=== PATIENT | female | born 1985 | race Caucasian/White ===

== ENCOUNTER → 2019-12-16 15:22 | Outpatient (CLI) | payer OTHER, SELFPAY ==
--- NOTE | ~2019-12-16 | US_ITS ---
EXAMINATION: US OB transvaginal EXAM DATE: 12/16/2019 15:49 INDICATION: , for dating. First trimester. TECHNIQUE: Pelvic obstetrical transvaginal sonogram was performed by a technologist. There are [facility] grayscale and Doppler images available for interpretation. There are no earlier studies of this gestation for comparison. FINDINGS: Uterus measures 9.1 x 4.1 x 4.7 cm. There is intrauterine gestation sac. The 1.0 cm crown -rump length corresponds to estimated gestational age by ultrasound of 5 weeks 0 days, estimated date of confinement 08/17/2020. pole identified at this time. Yolk sac is identified. There is no sonographic evidence of subchorionic hemorrhage. The ovaries are unremarkable. IMPRESSION: Intrauterine gestation sac without pole confirmed at this early gestation age of 5 weeks 0 days. Reviewed, dictated and finalized at location A. [employer] SUPERVISOR IMPRESSION: Intrauterine gestation sac without pole confirmed at this ear ly gestation age of 5 weeks 0 days.
== END ==
PROVIDERS: PCP Family Medicine; Visit Provider Nurse Practitioner
DX: Z36.87 Encounter for antenatal screening for uncertain dates (principal); Z3A.01 Less than 8 weeks gestation of pregnancy
CPT/HCPCS: 76817

== ENCOUNTER 2019-12-29 10:03 | Outpatient (RCR) | payer OTHER, SELFPAY | END 2020-03-28 23:59 | disposition home or self-care (01) | LOC: ANHLAB 10:03 | PROVIDERS: PCP Family Medicine; Visit Provider Obstetrics & Gynecology Gynecology | DX: Z32.01 Encounter for pregnancy test, result positive (principal); O26.851 Spotting complicating pregnancy, first trimester; Z3A.00 Weeks of gestation of pregnancy not specified | CPT/HCPCS: 36415; 84702; 86900; 86901 ==

== ENCOUNTER → 2020-01-02 08:46 | Outpatient (CLI) | payer OTHER, SELFPAY ==
--- NOTE | ~2020-01-02 | US_ITS ---
EXAMINATION: US OB transvaginal DATE: 01/02/2020 09:18 INDICATION: Vaginal spotting TECHNIQUE: Real-time transvaginal obstetric ultrasound. FINDINGS: Comparison to 12/16/2019 The uterus measures 8 x 4 x 6 cm.. There is an intrauterine gestational sac, with pole identifi ed. The crown rump length measures 0.36 cm, which correlates with a estimated gestational age of 6 w eeks 0 days. heart tones are identified measuring 77 BPM. The ovaries are within normal limit s without significant solid or cystic mass. No free fluid in the pelvis. IMPRESSION: 1. SL IUP with an EGA of 6 weeks, 0 days (EDC by current ultrasound of 08/27/2020). growth is l ess than expected compared to prior examination. Recommend follow-up ultrasound as clinically indicat ed. Reviewed, dictated and finalized at location A. IMPRESSION: 1. SL IUP with an EGA of 6 weeks, 0 days (EDC by current ultrasound of 08/27/20 20). growth is less than expected compared to prior examination. Recommen d follow-up ultrasound as clinically indicated.
== END ==
PROVIDERS: PCP Family Medicine; Visit Provider Obstetrics & Gynecology Gynecology
DX: O26.851 Spotting complicating pregnancy, first trimester (principal); Z3A.01 Less than 8 weeks gestation of pregnancy
CPT/HCPCS: 76817

== ENCOUNTER 2020-01-04 15:45 | Outpatient (RCR) | payer OTHER, SELFPAY | END 2020-01-04 15:46 | disposition home or self-care (01) | LOC: ANHLAB 15:45 | PROVIDERS: PCP Family Medicine; Visit Provider Obstetrics & Gynecology Gynecology | DX: O20.0 Threatened abortion (principal); Z3A.00 Weeks of gestation of pregnancy not specified | CPT/HCPCS: 36415; 84702 ==

== ENCOUNTER → 2020-01-06 14:19 | Outpatient (CLI) | payer OTHER, SELFPAY ==
--- NOTE | ~2020-01-06 | US_ITS ---
EXAMINATION: US OB transvaginal DATE: 01/06/2020 15:09 INDICATION: Threatened . TECHNIQUE: Real-time transvaginal pelvic ultrasound was performed. COMPARISON: Ultrasound 01/02/2020, 12/16/2019 FINDINGS: The uterus measures 7.6 x 4.9 x 6.0 cm. There is an intrauterine gestational sac. A yolk sac is ident ified. The crown rump length measures 3 mm, which correlates with an estimated gestational age of 6 weeks and 0 day(s) (+/-) 4 day(s). heart motion is identified, but the heart rate could n ot be measured. The right ovary measures 1.9 x 2.8 x 1.8 cm. The left ovary measures 2.7 x 2.8 x 2.6 cm. There is no free fluid in the pelvis. IMPRESSION: 1. Single living intrauterine gestation with estimated date of delivery of 08/27/2020 based on the u ltrasound from 01/02/2020. Reviewed, dictated and finalized at location A. IMPRESSION: 1. Single living intrauterine gestation with estimated date of delivery of based on the ultrasound from 01/02/2020.
== END ==
PROVIDERS: PCP Family Medicine; Visit Provider Nurse Practitioner
DX: O20.0 Threatened abortion (principal); Z3A.00 Weeks of gestation of pregnancy not specified
CPT/HCPCS: 76817

== ENCOUNTER → 2020-01-13 10:26 | Outpatient (CLI) | payer OTHER, SELFPAY ==
--- NOTE | ~2020-01-13 | US_ITS ---
EXAMINATION: US OB transvaginal DATE: 01/13/2020 10:52 INDICATION: Threatened during first trimester of . TECHNIQUE: Real-time pelvic ultrasound was performed. The interpreting radiologist was not present fo r the study. COMPARISON: None. FINDINGS: The uterus measures 10.4 x 5.5 x 5.9. There is an intrauterine gestational sac. A yolk sac and pole are identified. The crown rump length measures 4 mm, which correlates with an estimated gestatio nal age of 6 weeks and 0 days. No evident cardiac motion by M-mode Doppler. The right ovary 3.3 x 2.0 x 2.9. The left ovary 3.1 x 3.0 x 2.7. There is no free fluid in the pelvis . IMPRESSION: 1. Intrauterine with 6 mm pole without discernible heart motion on Doppler jc ging which is suspicious for but at <7 mm crown-rump length, not diagnostic for demise. Reviewed, dictated and finalized at location B. IMPRESSION: 1. Intrauterine with 6 mm pole without discernible heart motion on Doppler imaging which is suspicious for but at <7 mm crown-rump lianna th, not diagnostic for demise.
== END ==
PROVIDERS: PCP Family Medicine; Visit Provider Obstetrics & Gynecology Gynecology
DX: O20.0 Threatened abortion (principal); Z3A.00 Weeks of gestation of pregnancy not specified
CPT/HCPCS: 76817

== ENCOUNTER 2021-11-01 15:30 | Outpatient (RCR) | payer OTHER, SELFPAY ==
[2021-10-31 13:02] VITALS: BMI 30.4
[2021-10-31 13:11] VITALS: BMI 30.4
[2021-11-12] VITALS (9 sets, daily range): BP systolic 122–133; BP diastolic 68–73; PULSE 57–75; O2SAT 99–100
== END 2022-01-20 12:08 | disposition home or self-care (01) ==
LOC: ANHDMC 15:30
PROVIDERS: Visit Provider Obstetrics & Gynecology
DX: O24.319 Unspecified pre-existing diabetes mellitus in pregnancy, unspecified trimester (principal); Z3A.00 Weeks of gestation of pregnancy not specified; Z71.3 Dietary counseling and surveillance; Z71.89 Other specified counseling
CPT/HCPCS: 97802; G0108

== ENCOUNTER 2021-12-04 13:32 | Outpatient (RCR) | payer OTHER, SELFPAY ==
[2021-11-05 16:02] VITALS: BP 128/67; PULSE 63
[2021-11-12 16:17] VITALS: BP 122/73; PULSE 66
[2021-11-18 15:42] VITALS: BP 124/70; PULSE 72
[2021-11-27 14:05] VITALS: BP 123/82; PULSE 81
[2021-12-04 14:25] VITALS: BP 140/76; PULSE 65
== END 2022-02-03 23:59 | disposition home or self-care (01) ==
LOC: ANHOBOP 13:32
PROVIDERS: Visit Provider Obstetrics & Gynecology
DX: O24.419 Gestational diabetes mellitus in pregnancy, unspecified control (principal); Z3A.32 32 weeks gestation of pregnancy; Z3A.33 33 weeks gestation of pregnancy; Z3A.34 34 weeks gestation of pregnancy; Z3A.36 36 weeks gestation of pregnancy; Z3A.37 37 weeks gestation of pregnancy
CPT/HCPCS: 59025

== ENCOUNTER 2021-12-06 16:15 | Observation (INO) | payer OTHER, SELFPAY ==
[2021-12-06 16:39] VITALS: BP 143/94; PULSE 88
[2021-12-06 16:45] VITALS: BP 132/82; PULSE 74
[2021-12-06 17:36] VITALS: BMI 30.4
--- NOTE | 2021-12-06 17:37 | OBADM ---
This patient, Mariana Muniz, admitted to the OB room OB Post 117 for observation. Patient/family oriented to hospital policies and general routines including ID bracelet, bed and alarms, visiting hours, pain management, procedures, bathroom and other care routines, personal items, smoking policy, room service/diet, and visiting hours. Patient/Family are encouraged to report perceived risks to care and to ask questions if they do not understand what they are told or what they should do.
--- NOTE | 2021-12-12 07:36 | PM.OBTRLD ---
OB - Triage/Final Diagnosis Visit Information Comments/Additional reasons for admission: I have assessed the risk for this patient, Mariana Muniz, and determined that she would benefit from observation care.
== END 2021-12-06 17:35 | disposition home or self-care (01) ==
PROVIDERS: Admitting Provider Obstetrics & Gynecology; Visit Provider Obstetrics & Gynecology
DX: O47.1 False labor at or after 37 completed weeks of gestation (principal); Z3A.37 37 weeks gestation of pregnancy
CPT/HCPCS: G0378; G0379

== ENCOUNTER 2021-12-10 06:53 | Inpatient (IN) | payer OTHER, SELFPAY ==
[2021-12-10] VITALS (24 sets, daily range): BP systolic 123–166; BP diastolic 65–96; PULSE 65–114; RESP 16; TEMP 36.4–37.1; O2SAT 97–100; BMI 29.9
[2021-12-10 07:53] LABS: Basophils Absolute Auto 0.1 K/mm3 (0.0-0.1); Basophils Percent Auto 0.4 % (0.2-1.2); Eosinophils Absolute Auto 0.1 K/mm3 (0-0.3); Eosinophils Percent Auto 0.9 % (0-4.4); Hematocrit 38.1 % (37.0-47.0); Hemoglobin 13.8 g/dL (12.0-15.0); Immature Granulocyte Absolute 0.12 K/mm3 (0.00-0.031); Immature Granulocyte Percent A 0.9 % (0-0.5); Immature Platelet Fraction Pct 14.6 % (0.9-11.2); Lymphocytes Percent Auto 8.7 % (18.3-44.2); Mean Corpuscular HGB Conc 36.2 g/dl (32-36); Mean Corpuscular Hemoglobin 32.5 pg (26-34); Mean Corpuscular Volume 89.6 fl (80-100); Mean Platelet Volume 11.8 fl (7.4-10.4); Monocytes Absolute Auto 0.7 K/mm3 (0.1-0.6); Monocytes Percent Auto 5.5 % (2.6-8.5); Neutrophils Absolute Auto 10.6 K/mm3 (1.3-6.7); Neutrophils Percent Auto 83.6 % (45.5-73.1); Platelet Count Result 39 k/mm3 (150-375); Red Blood Count 4.25 M/mm3 (4.2-5.4); White Blood Count 12.7 K/mm3 (4.5-10.0)
[2021-12-10] MEDS: OXYTOCIN 30 UNITS/NS 500 ML 30 UNITS/500 ML BAG 6 UNITS IV CONT (08:03)
[2021-12-10] MEDS: LACTATED RINGERS 1,000 ML 125 ML IV CONT ×2 (08:03→09:10)
[2021-12-10 08:04] LABS: Alanine Aminotransferase 335 U/L (4-35); Albumin Level 3.9 g/dL (3.5-5.1); Alkaline Phosphatase 180 U/L (38-126); Anion Gap 8 mmol/L (8-16); Aspartate Amino Transferase 307 U/L (14-36); Bilirubin,Total 2.2 mg/dL (0.2-1.3); Blood Urea Nitrogen 14 mg/dL (7-17); Calcium 9.4 mg/dL (8.4-10.2); Carbon Dioxide 21 mmol/L (22-30); Chloride 105 mmol/L (98-107); Estimated Glomerular Filt Rate > 60; Glucose 100 mg/dL (65-110); Potassium 4.1 mmol/L (3.4-5.0); Sodium 134 mmol/L (137-145)
[2021-12-10 08:13] LABS: Uric Acid 8.6 mg/dL (2.5-7.5)
[2021-12-10 08:16] LABS: Atypical Lymphocytes Present; Platelet Estimate Decreased (Adequate)
--- NOTE | 2021-12-10 08:51 | PM.IMHP ---
H&P: HPI History of Present Illness Date/Time: 12/10/21 08:51 36 y/o at 37 4/7 weeks with favorable cervix, mildly elevated bp in office yesterday at 142/92. No proteinuria, no headache, no visual field change, good movement. EFW 7#2oz, normal MATHEW, vertex. GBS neg. Well-controlled A1DM. I had offered induction of labor in light of clinical picture. Her labs this morning were a surprise. Chief Complaint: Hear for induction of labor. Review of Systems Review of Systems: All systems reviewed & are unremarkable except as noted in HPI and below PMFSH Past Medical History Medical History Asthma Depression Family History Family History Grandparent IBS (irritable bowel syndrome) Acid reflux FH: mental illness Asthma Heart disease Diabetes mellitus Cancer Mother IBS (irritable bowel syndrome) Acid reflux Alcohol addiction FH: mental illness Cancer Father Alcohol addiction Pancreatitis Heart disease Diabetes mellitus Other Patient's father is Social History Social History Smoking status: Never smoker Substance use: never Spiritual care concerns: No Meds Home Medications and Allergies Home Medications Medication Instructions Recorded Confirmed Type 1 tablet PO DAILY 12/06/21 12/06/21 History diphenhydramine HCl 25 mg PO HS PRN 12/06/21 12/06/21 History Allergies Allergy/AdvReac Type Severity Reaction Status Date / Time NKDA Allergy Unknown Unknown Uncoded 11/27/21 13:52 Vital Signs Vital Signs - 24 hr 12/10/21 07:11 12/10/21 08:07 12/10/21 08:31 Pulse Rate 81 70 74 Blood Pressure 148/96 H 146/87 H 144/81 H Exam Const: Orientation/consciousness: patient oriented x3 Other: Well-developed, well-nourished female in no acute distress. Neck: Thyroid: thyroid normal Lymphatic: no lymphadenopathy noted (in neck, axilla or inguinal nodes) Resp: Effort & Inspection: normal respiratory effort Auscultation: clear to auscultation bilaterally Cardio: Rate: regular rate Rhythm: regular rhythm Heart sounds: S1 normal heart sound present and S2 normal heart sound present GI: Other: ABD: Soft, nontender, nondistended, gravid, vertex. NST reactive. TOCO: contractions every 2-4 min. No guarding or rebound tenderness. No hepatosplenomegaly. : General: Yes no CVA tenderness Other: Cervix 4-5/80/-2. AROM with clear fluid. Vertex. Back/Spine/Pelvis: Back: no CVA tenderness Skin: General skin exam: normal color and no rashes or lesions noted Neuro: General: patient oriented x3 Extrem: Other: Extremities: nontender with no edema Psych: Mental Status: mental status grossly normal Affect: normal affect H&P: Results Labs Labs: Short CBC 12/10/21 Range/Units 07:40 WBC 12.7 H (4.5-10.0) K/mm3 Hgb 13.8 (12.0-15.0) g/dL Hct 38.1 (37.0-47.0) % Plt Count 39 L (150-375) k/mm3 BMP 12/10/21 07:40 Sodium 134 L Potassium 4.1 Chloride 105 Carbon Dioxide 21 L BUN 14 Creatinine 1.00 Glucose 100 Calcium 9.4 Liver Function 12/10/21 Range/Units 07:40 Total Bilirubin 2.2 H (0.2-1.3) mg/dL AST 307 H (14-36) U/L ALT 335 H (4-35) U/L Alkaline Phosphatase 180 H (38-126) U/L Albumin 3.9 (3.5-5.1) g/dL Assessment and Plan Assessment and plan (1) GDM (gestational diabetes mellitus), class A1: Code(s): O24.410 - Gestational diabetes mellitus in , diet controlled Status: Acute Assessment and Plan: A: Preeclampsia with severe features, well-controlled A1DM. P: Induction of labor. Consider magnesium sulfate for seizure prophylaxis. Peds and anesthesia aware. Monitor glucose, bp. (2) Preeclampsia: Code(s): O14.90 - Unspecified pre-eclampsia, unspecified trimester Status:
[2021-12-10 09:00] LABS: Immature Platelet Fraction Pct 14.6 % (0.9-11.2); Mean Platelet Volume 11.7 fl (7.4-10.4); Platelet Count Result 36 k/mm3 (150-375)
[2021-12-10] MEDS: fentaNYL CITRATE INJ (*CRX) 100 MCG/2 ML VIAL 50 MCG IV PUSH ×2 (09:27→10:36)
[2021-12-10] MEDS: ONDANSETRON INJ 4 MG/2 ML VIAL IV PUSH (11:17)
[2021-12-10] MEDS: fentaNYL CITRATE INJ (*CRX) 100 MCG/2 ML VIAL IV PUSH (11:18)
[2021-12-10 12:19] LABS: Glucose Point of Care 90 mg/dl (65-105)
--- NOTE | 2021-12-10 12:32 | PM.OBPRVD ---
OB - Delivery Note Procedure Delivery date: 12/10/21 Procedure: Induction of labor with Events: HELLP Syndrome Induction method: None Delivery augmentation: Pitocin Delivery monitor: External FHT and External Uterine Route of delivery: Laceration Description: Perineal - 2nd Degree Delivery repair: vicryl (3-0) Specimen: Yes (cord blood, placenta) Quantitative Blood Loss (ml): 320 Anesthesia type: Local (1% lidocaine) Disposition: PACU Complications: None Narrative: 36 y/o at 37 4/7 weeks gestation who presented to the hospital for induction of labor for elevated bp, well-controlled A1DM, and favorable cervix. On admission she was found to have elevated transaminases, elevated creatinine, and platelets of only 39K. Oxytocin was administered intravenously. Amniotomy was performed with return of clear fluid. Her labor progressed and her cervix dilated completely. She pushed with good effort and delivered the 's head to the perineum, followed by the body. The nose and mouth were bulb suctioned. After a delay, the cord was clamped and cut. The infant was handed off the field. Cord blood was collected. The placenta delivered spontaneously and was grossly normal in appearance. The usual 3 vessel cord was noted. A second degree midline perineal laceration was sustained. This was infiltrated with 10 mL of 1% lidocaine and reapproximated using 3 0 Vicryl in the usual layered fashion. Excellent hemostasis resulted as did excellent reapproximation of the normal anatomy. Needle and instrument counts were correct. The patient was taken to recovery room in stable condition. The infant went to the nursery in stable condition. I was present and scrubbed for the entire delivery. [place] [facility] Date of : 12/10/21 Time of : 12:01 Weeks of gestation at delivery: 37 gender: Female Weight (pounds): 7 Weight (ounces): 1 presentation: vertex position: Right Occiput Anterior Placenta delivery description: Spontaneous and Normal Configuration Cord Vessel Description: 3 Vessels and Delayed Cord Clamping score one minute: 8 score five minutes: 9
[2021-12-10] MEDS: OXYTOCIN 30 UNITS/NS 500 ML 30 UNITS/500 ML BAG 125 UNITS IV CONT (12:39)
[2021-12-10] MEDS: MAGNESIUM SULF 4 GM/WATER100ML 4 GM/100 ML BAG IVPB (13:00)
[2021-12-10] MEDS: MAGNESIUM SULF 20GM/WATER500ML 500 ML 50 MG IV CONT ×2 (14:01→23:18)
[2021-12-10] MEDS: IBUPROFEN 600 MG TABLET PO ×2 (14:03→21:04)
[2021-12-10] MEDS: WITCH HAZEL 40 PADS 1 PAD TOPICAL (14:04)
[2021-12-10] MEDS: BENZOCAINE 20% AER SPR (*SP) 56 GM CAN 1 SPRAY TOPICAL (14:04)
--- NOTE | 2021-12-10 14:56 | OBPPTRN ---
Patient transferred to post room # 291 via wheelchair. Support person present. Oriented to unit, room, information board, rooming in, admission packet and security measures. Patient verbalizes understanding.
[2021-12-10] MEDS: LACTATED RINGERS 1,000 ML 75 ML IV CONT (17:17)
[2021-12-10 19:21] LABS: Hematocrit 35.2 % (37.0-47.0); Hemoglobin 12.6 g/dL (12.0-15.0); Immature Platelet Fraction Pct 15.7 % (0.9-11.2); Mean Corpuscular HGB Conc 35.8 g/dl (32-36); Mean Corpuscular Hemoglobin 32.8 pg (26-34); Mean Corpuscular Volume 91.7 fl (80-100); Mean Platelet Volume 11.8 fl (7.4-10.4); Platelet Count Result 38 k/mm3 (150-375); Red Blood Count 3.84 M/mm3 (4.2-5.4); Red Cell Distribution Width 13.3 % (11.5-14.5); White Blood Count 13.1 K/mm3 (4.5-10.0)
[2021-12-10] MEDS: ACETAMINOPHEN 325 MG TABLET 650 MG PO (21:05)
[2021-12-10] MEDS: diphenhydrAMINE HCl CAP 25 MG CAPSULE 50 MG PO (21:06)
[2021-12-10] MEDS: HYDROcodone/acetaminophen (*CRX) 5-325 MG TABLET 1 TAB PO (23:17)
[2021-12-11] MEDS: HYDROcodone/acetaminophen (*CRX) 5-325 MG TABLET 1 TAB PO ×3 (03:58→21:14)
[2021-12-11 04:00] VITALS: BP 132/87; PULSE 86; RESP 18; TEMP 36.7; O2SAT 100
[2021-12-11] MEDS: LACTATED RINGERS 1,000 ML 75 ML IV CONT (04:10)
[2021-12-11 05:07] LABS: Hemoglobin 11.7 g/dL (12.0-15.0); Immature Platelet Fraction Pct 17.3 % (0.9-11.2); Mean Corpuscular HGB Conc 35.5 g/dl (32-36); Mean Corpuscular Hemoglobin 32.8 pg (26-34); Mean Corpuscular Volume 92.4 fl (80-100); Mean Platelet Volume 12.2 fl (7.4-10.4); Platelet Count Result 32 k/mm3 (150-375); Red Blood Count 3.57 M/mm3 (4.2-5.4); Red Cell Distribution Width 13.4 % (11.5-14.5); White Blood Count 12.4 K/mm3 (4.5-10.0)
[2021-12-11 05:22] LABS: Alanine Aminotransferase 361 U/L (4-35); Albumin Level 2.9 g/dL (3.5-5.1); Alkaline Phosphatase 166 U/L (38-126); Anion Gap 4 mmol/L (8-16); Aspartate Amino Transferase 358 U/L (14-36); Bilirubin,Total 1.1 mg/dL (0.2-1.3); Blood Urea Nitrogen 8 mg/dL (7-17); Calcium 5.7 mg/dL (8.4-10.2); Carbon Dioxide 23 mmol/L (22-30); Chloride 106 mmol/L (98-107); Estimated CRCL calculation 88 ml/min; Estimated Glomerular Filt Rate > 60; Glucose 144 mg/dL (65-110); Potassium 3.6 mmol/L (3.4-5.0); Sodium 133 mmol/L (137-145)
[2021-12-11 07:25] VITALS: BP 107/66; PULSE 76; RESP 16; TEMP 36.4; O2SAT 98
--- NOTE | 2021-12-11 07:42 | PM.OBTRLD ---
OB - Triage/Final Diagnosis Visit Information Reason for evaluation: threatened labor Comments/Additional reasons for admission: I have assessed the risk for this patient, Mariana Muniz, and determined that she would benefit from observation care. Evaluation Laboratory results: Laboratory Tests 12/10/21 12/10/21 12/10/21 07:39 07:40 07:40 WBC 12.7 H RBC 4.25 Hgb 13.8 Hct 38.1 MCV 89.6 MCH 32.5 MCHC 36.2 H RDW 13.0 Plt Count 39 L MPV 11.8 H Immature Gran % (Auto) 0.9 H Neut % (Auto) 83.6 H Lymph % (Auto) 8.7 L [place] % (Auto) 5.5 Eos % (Auto) 0.9 Baso % (Auto) 0.4 Lymph # (Auto) 1.10 [place] # (Auto) 0.7 H Eos # (Auto) 0.1 Baso # (Auto) 0.1 Abs Immat Gran (auto) 0.12 H Absolute Neuts (auto) 10.6 H Absolute Nucleated RBC 0.0 Nucleated RBC % 0.0 Atypical Lymphocytes Present Platelet Estimate Decreased % Immature Plt Fraction 14.6 H Sodium Potassium Chloride Carbon Dioxide Anion Gap BUN Creatinine Estim Creat Clear Calc Estimated GFR Glucose POC Capillary Glucose Uric Acid Cancelled Calcium Total Bilirubin AST ALT Alkaline Phosphatase Total Protein Albumin Blood Type AB Positive Antibody Screen Negative 12/10/21 12/10/21 12/10/21 07:40 08:29 11:03 WBC RBC Hgb Hct MCV MCH MCHC RDW Plt Count 36 L MPV 11.7 H Immature Gran % (Auto) Neut % (Auto) Lymph % (Auto) [place] % (Auto) Eos % (Auto) Baso % (Auto) Lymph # (Auto) [place] # (Auto) Eos # (Auto) Baso # (Auto) Abs Immat Gran (auto) Absolute Neuts (auto) Absolute Nucleated RBC Nucleated RBC % Atypical Lymphocytes Platelet Estimate % Immature Plt Fraction 14.6 H Sodium 134 L Potassium 4.1 Chloride 105 Carbon Dioxide 21 L Anion Gap 8 BUN 14 Creatinine 1.00 Estim Creat Clear Calc Not Reportable Estimated GFR > 60 Glucose 100 POC Capillary Glucose 90 Uric Acid 8.6 H Calcium 9.4 Total Bilirubin 2.2 H AST 307 H ALT 335 H Alkaline Phosphatase 180 H Total Protein 7.0 Albumin 3.9 Blood Type Antibody Screen 12/10/21 12/11/21 12/11/21 19:08 04:07 04:07 WBC 13.1 H 12.4 H RBC 3.84 L 3.57 L Hgb 12.6 11.7 L Hct 35.2 L 33.0 L MCV 91.7 92.4 MCH 32.8 32.8 MCHC 35.8 35.5 RDW 13.3 13.4 Plt Count 38 L 32 L MPV 11.8 H 12.2 H Immature Gran % (Auto) Neut % (Auto) Lymph % (Auto) [place] % (Auto) Eos % (Auto) Baso % (Auto) Lymph # (Auto) [place] # (Auto) Eos # (Auto) Baso # (Auto) Abs Immat Gran (auto) Absolute Neuts (auto) Absolute Nucleated RBC Nucleated RBC % Atypical Lymphocytes Platelet Estimate % Immature Plt Fraction 15.7 H 17.3 H Sodium 133 L Potassium 3.6 Chloride 106 Carbon Dioxide 23 Anion Gap 4 L BUN 8 D Creatinine 0.80 Estim Creat Clear Calc 88 Estimated GFR > 60 Glucose 144 H POC Capillary Glucose Uric Acid Calcium 5.7 L Total Bilirubin 1.1 AST 358 H ALT 361 H Alkaline Phosphatase 166 H Total Protein 6.0 L Albumin 2.9 L Blood Type Antibody Screen Vital signs: Vital Signs - 24 hr 12/10/21 08:07 12/10/21 08:31 12/10/21 09:01 Temperature Pulse Rate 70 74 65 Respiratory Rate Blood Pressure 146/87 H 144/81 H 151/81 H Pulse Oximetry 12/10/21 09:29 12/10/21 10:01 12/10/21 10:31 Temperature 98.8 F Pulse Rate 67 67 Respiratory Rate Blood Pressure 156/88 H 161/86 H Pulse Oximetry 12/10/21 11:01 12/10/21 12:22 12/10/21 12:31 Temperature Pulse Rate 74 80 80 Respiratory Rate Blood Pressure 158/77 H 152/73 H 150/70 H Pulse Oximetry 12/10/21 12:46 12/10/21 13:00 12/10/21 13:01 Temperature 98.8 F Pulse Rate 81 82 Respiratory Rate 16 Blood Pressur
--- NOTE | 2021-12-11 08:00 | PC.NURSE ---
PT introductions made and plan of care discussed per post , pain management, breast /bottle feeding/pumping, daily care activities and PIH. PT and spouse both recipients of such instructions and care. PT received instructions per one to one discussion, mom baby care guide and demonstrations this shift. No barriers identified at this time. PT verbalized understanding.
[2021-12-11 08:30] VITALS: PULSE 76; RESP 16; O2SAT 98
--- NOTE | 2021-12-11 08:30 | PM.OBPNVD ---
OB - PN: Subj Subjective Date/time seen: 12/11/21 08:30 Narrative: Pain OK. Tolerating diet. OB - PN: Obj Data Labs CBC & Chem 7: 12/11/21 04:07 12/11/21 04:07 Labs: Laboratory Results - last 24 hr 12/10/21 12/10/21 12/10/21 07:39 08:29 11:03 WBC RBC Hgb Hct MCV MCH MCHC RDW Plt Count 36 L MPV 11.7 H % Immature Plt Fraction 14.6 H Sodium Potassium Chloride Carbon Dioxide Anion Gap BUN Creatinine Estim Creat Clear Calc Estimated GFR Glucose POC Capillary Glucose 90 Calcium Total Bilirubin AST ALT Alkaline Phosphatase Total Protein Albumin Blood Type AB Positive Antibody Screen Negative 12/10/21 12/11/21 12/11/21 19:08 04:07 04:07 WBC 13.1 H 12.4 H RBC 3.84 L 3.57 L Hgb 12.6 11.7 L Hct 35.2 L 33.0 L MCV 91.7 92.4 MCH 32.8 32.8 MCHC 35.8 35.5 RDW 13.3 13.4 Plt Count 38 L 32 L MPV 11.8 H 12.2 H % Immature Plt Fraction 15.7 H 17.3 H Sodium 133 L Potassium 3.6 Chloride 106 Carbon Dioxide 23 Anion Gap 4 L BUN 8 D Creatinine 0.80 Estim Creat Clear Calc 88 Estimated GFR > 60 Glucose 144 H POC Capillary Glucose Calcium 5.7 L Total Bilirubin 1.1 AST 358 H ALT 361 H Alkaline Phosphatase 166 H Total Protein 6.0 L Albumin 2.9 L Blood Type Antibody Screen OB - PN A/P Plan Comments: A: POD#1, doing well. Severe preeclampsia showing some improvement. Cr and UO good, bp stable, transaminases and platelets not improved yet. P: Routine care. Magnesium sulfate for 24 hours for seizure prophylaxis. Repeat labs tomorrow. Exam Narrative: AVSS I/O OK ABD soft, nontender, fundus firm. Incision c/d/i. EXT nontender NEURO: DTR 2/4 and symmetric in lower extremities
[2021-12-11 09:25] LABS: Rapid Plasma Reagin Non-Reactive (NonReactive)
[2021-12-11] MEDS: MAGNESIUM SULF 20GM/WATER500ML 500 ML 50 MG IV CONT (09:43)
[2021-12-11] MEDS: ACETAMINOPHEN 325 MG TABLET 650 MG PO (09:49)
[2021-12-11] MEDS: POLYSACCHARIDE IRON COMPLEX 150 MG CAPSULE PO (09:50)
[2021-12-11] MEDS: DOCUSATE SODIUM 100 MG CAPSULE PO ×2 (09:50→17:09)
[2021-12-11] MEDS: MULTIVIT/MIN/PREN/FOL AC/IRON TABLET 1 TAB PO (09:50)
[2021-12-11 11:47] VITALS: BP 122/81; PULSE 87; RESP 16; TEMP 36.6; O2SAT 99
--- NOTE | 2021-12-11 14:30 | P.DS_ITS ---
DS: Admitting Diagnosis Discharge Date 12/12/21 Admitting Diagnosis IUP at 37 4/7 weeks Severe preeclampsia Gestational diabetes DS: Discharge Diagnosis Discharge Diagnosis (1) Preeclampsia: Code(s): O14.90 - Unspecified pre-eclampsia, unspecified trimester Status: Acute (2) GDM (gestational diabetes mellitus), class A1: Code(s): O24.410 - Gestational diabetes mellitus in , diet controlled Status: Acute (3) (normal spontaneous vaginal delivery): Code(s): O80 - Encounter for full-term uncomplicated delivery Status: Acute OB - DS: Summary OB Procedures : PIH Mgmt OB Procedures Intrapartum: Spontaneous Vag Delivery OB Procedures: : None DS: Data Data Completed and Pending Pending studies at discharge: Pending at discharge 12/10/21 12:27 Surgical [PTH] Routine Labs on day of discharge: Labs from last 24 hours 12/11/21 12/11/21 12/10/21 04:07 04:07 19:08 WBC 12.4 H 13.1 H RBC 3.57 L 3.84 L Hgb 11.7 L 12.6 Hct 33.0 L 35.2 L MCV 92.4 91.7 MCH 32.8 32.8 MCHC 35.5 35.8 RDW 13.4 13.3 Plt Count 32 L 38 L MPV 12.2 H 11.8 H % Immature Plt Fraction 17.3 H 15.7 H Sodium 133 L Potassium 3.6 Chloride 106 Carbon Dioxide 23 Anion Gap 4 L BUN 8 D Creatinine 0.80 Estim Creat Clear Calc 88 Estimated GFR > 60 Glucose 144 H Calcium 5.7 L Total Bilirubin 1.1 AST 358 H ALT 361 H Alkaline Phosphatase 166 H Total Protein 6.0 L Albumin 2.9 L RPR 12/10/21 07:40 WBC RBC Hgb Hct MCV MCH MCHC RDW Plt Count MPV % Immature Plt Fraction Sodium Potassium Chloride Carbon Dioxide Anion Gap BUN Creatinine Estim Creat Clear Calc Estimated GFR Glucose Calcium Total Bilirubin AST ALT Alkaline Phosphatase Total Protein Albumin RPR Non-reactive Discharge Plan Discharge Attending physician on discharge: Doroteo Vazquez Discharging Clinician: George Patient Disposition: Home, Self-Care Activity: pelvic rest Diet: regular Discharge Instructions: Call or return if temperature above 100.4? F, increased abdominal pain, increased vaginal bleeding or any new problems. Stand Alone Forms: General Discharge Information Follow-up/Referrals: Doroteo Vazquez MD [Physician] - 1 Week Discharge Medications: New ibuprofen 600 mg tablet 600 mg PO Q6H PRN (Reason: cramps) Qty: 30 RF: 0 hydrocodone-acetaminophen 5-325 mg tablet 1 tablet PO Q6H Qty: 20 RF: 0 Continued 28-800 mg-mcg Tablet 1 tablet PO DAILY RF: 0 diphenhydramine HCl 25 mg Capsule 25 mg PO HS PRN (Reason: Sleep) RF: 0 Date of admission: 12/10/21 06:53 Primary Care Provider: PHYSICIAN,CLIENT APPLICATION SUPPORT SPECIALIST Admitting Provider: Doroteo Vazquez Attending physician on admission: Doroteo Vazquez
[2021-12-11 17:10] VITALS: BP 132/86; PULSE 97; RESP 18; TEMP 36.3; O2SAT 99
[2021-12-11 20:55] VITALS: BP 122/80; PULSE 88; RESP 16; RESP 18; TEMP 36.7; O2SAT 100
[2021-12-11] MEDS: FAMOTIDINE 20 MG TABLET PO (21:30)
[2021-12-12 01:15] VITALS: BP 113/73; PULSE 80; RESP 18; TEMP 36.9; O2SAT 100
[2021-12-12] MEDS: HYDROcodone/acetaminophen (*CRX) 5-325 MG TABLET 1 TAB PO ×2 (01:15→10:07)
[2021-12-12 05:00] VITALS: BP 110/63; PULSE 78; RESP 18; TEMP 36.5; O2SAT 100
[2021-12-12 05:43] LABS: Hematocrit 29.6 % (37.0-47.0); Hemoglobin 10.1 g/dL (12.0-15.0); Immature Platelet Fraction Pct 15.2 % (0.9-11.2); Mean Corpuscular HGB Conc 34.1 g/dl (32-36); Mean Corpuscular Hemoglobin 32.1 pg (26-34); Platelet Count Result 47 k/mm3 (150-375); Red Blood Count 3.15 M/mm3 (4.2-5.4); White Blood Count 12.4 K/mm3 (4.5-10.0)
[2021-12-12 05:53] LABS: Alanine Aminotransferase 229 U/L (4-35); Albumin Level 2.7 g/dL (3.5-5.1); Alkaline Phosphatase 134 U/L (38-126); Anion Gap 2 mmol/L (8-16); Aspartate Amino Transferase 137 U/L (14-36); Bilirubin,Total 0.7 mg/dL (0.2-1.3); Blood Urea Nitrogen 8 mg/dL (7-17); Calcium 5.8 mg/dL (8.4-10.2); Carbon Dioxide 25 mmol/L (22-30); Chloride 107 mmol/L (98-107); Estimated CRCL calculation 99 ml/min; Estimated Glomerular Filt Rate > 60; Glucose 87 mg/dL (65-110); Potassium 3.9 mmol/L (3.4-5.0); Sodium 134 mmol/L (137-145)
--- NOTE | 2021-12-12 06:45 | PC.NURSE ---
PT introductions made and plan of care discussed per post , pain management, breast /bottle feeding/pumping, daily care activities and PIH and pending discharge to home. PT and spouse both recipients of such instructions and care. PT received instructions per one to one discussion, mom baby care guide and demonstrations this shift. No barriers identified at this time. PT verbalized understanding.
[2021-12-12 07:55] VITALS: BP 123/83; PULSE 81; RESP 18; TEMP 36.5; O2SAT 99
--- NOTE | 2021-12-12 09:09 | PM.OBPNVD ---
OB - PN: Subj Subjective Date/time seen: 12/12/21 09:09 Narrative: Pain OK. Would like to go home. OB - PN: Obj Data Labs CBC & Chem 7: 12/12/21 05:34 12/12/21 05:34 Labs: Laboratory Results - last 24 hr 12/10/21 12/12/21 12/12/21 07:40 05:34 05:34 WBC 12.4 H RBC 3.15 L Hgb 10.1 L Hct 29.6 L MCV 94.0 MCH 32.1 MCHC 34.1 RDW 14.0 Plt Count 47 L MPV 12.0 H % Immature Plt Fraction 15.2 H Sodium 134 L Potassium 3.9 Chloride 107 Carbon Dioxide 25 Anion Gap 2 L BUN 8 Creatinine 0.70 Estim Creat Clear Calc 99 Estimated GFR > 60 Glucose 87 Calcium 5.8 L Total Bilirubin 0.7 AST 137 H ALT 229 H Alkaline Phosphatase 134 H Total Protein 5.0 L Albumin 2.7 L RPR Non-reactive OB - PN A/P Plan Comments: A: PPD#2, doing well. Severe preeclampsia improving clinically. P: Home to f/u 1 week. Exam Psych: Other: AVSS ABD soft, nontender, fundus firm EXT nontender
[2021-12-12 10:00] VITALS: PULSE 81; RESP 18; O2SAT 99
[2021-12-12] MEDS: DOCUSATE SODIUM 100 MG CAPSULE PO (10:08)
[2021-12-12] MEDS: MULTIVIT/MIN/PREN/FOL AC/IRON TABLET 1 TAB PO (10:08)
--- NOTE | 2021-12-12 11:30 | PC.NURSE ---
PT received discharge instructions per protocol and verbalized understanding. Patient viewed the discharge video Mother & Baby Care, The First Two Weeks . Patient was given the opportunity and encouraged to ask questions. Patient verbalized understanding of information shared and has been given the mother/baby guide for home reference.
--- NOTE | 2021-12-12 12:35 | PC.NURSE ---
PT discharged to home ambulatory accompanied by spouse and and taken to waiting car. Follow up appointments confirmed
--- NOTE | 2021-12-12 15:29 | PC.NURSE ---
[id number] Introductions were made and mother led the conversation with regards to her experience feeding her baby. Reminded parents to use good handwashing to prevent infection. has had appropriate feedings in the past 24 hours and meets the outcomes for weight, output and jaundice. Mother states she feels confident to continue pumping and supplementing with expressed human milk and formula with her at home. Reviewed production of human milk, transition of milk, signs of adequate intake and engorgement prevention/relief and when to call the care provider using the mom and baby guide. Reviewed medications mother is taking with information provided by [facility], community resources and outpatient services as listed in the mom and baby guide/[facility] website. Reinforced watching for feeding cues with responsive feeding, to stimulate to initiate feeding three hours from the start of the last feeding and when to call a doctor. Mother voiced understanding of information shared. Reported to primary RN.
[2021-12-13 09:51] VITALS: BP 144/81; PULSE 73; RESP 20; TEMP 37.2; O2SAT 100
== END 2021-12-12 12:35 | disposition home or self-care (01) | DRG 805 ==
LOC: ANHLDR 06:56 → ANHOB2 15:18
PROVIDERS: Admitting Provider Obstetrics & Gynecology; Visit Provider Obstetrics & Gynecology
DX: O14.24 HELLP syndrome, complicating childbirth (principal); O41.1230 Chorioamnionitis, third trimester, not applicable or unspecified; Z37.0 Single live birth; Z3A.37 37 weeks gestation of pregnancy; O24.420 Gestational diabetes mellitus in childbirth, diet controlled; O70.1 Second degree perineal laceration during delivery; Z23 Encounter for immunization
CPT/HCPCS: 36415; 80053; 82948; 84550; 85025; 85027; 85049; 85055; 86592; 86850; 86900; 86901; 88307; 90471; 90653; A9270; G0008; J2405; J2590; J2795; J3010; J3475; J7120

== ENCOUNTER 2024-03-15 13:02 | Outpatient (RCR) | payer OTHER, SELFPAY ==
[2024-02-13 09:47] VITALS: BP 129/66; PULSE 81
[2024-02-18 15:38] VITALS: BP 125/67; PULSE 84
[2024-02-25 17:06] VITALS: BP 121/66; PULSE 86
[2024-03-03 10:03] VITALS: PULSE 84
--- NOTE | 2024-03-06 14:58 | PC.NURSE ---
see obix notes
--- NOTE | 2024-03-06 16:36 | PM.OBTRLD ---
OB - Triage/Final Diagnosis Visit Information Date of evaluation: 03/06/24 Reason for evaluation: decreased movement Comments/Additional reasons for admission: I have assessed the risk for this patient, Mariana Muniz, and determined that she would benefit from observation care.
[2024-03-10 18:12] VITALS: BP 130/68; PULSE 87
--- NOTE | ~2024-03-15 | US_ITS ---
EXAMINATION: US OB BPP wo non-stress DATE: 03/06/2024 14:57 CDT INDICATION: Evaluate heart measurements. TECHNIQUE: Real-time transabdominal obstetric ultrasound. FINDINGS: No prior studies for comparison. There is a single living fetus in vertex presentation. The placenta is posterior without placenta pr evia. cardiac activity and movement is noted with a heart rate of 129 beats per minute. T here is polyhydramnios. MATHEW measures 25.2 cm. Biophysical profile: breathin of 2 movement: 2 of 2 tone: 2 of 2 Amniotic flud pocket: 2 of 2 Total score: 8 of 8 IMPRESSION: 1. Single living intrauterine in vertex presentation. 2: Total biophysical profile score of 8/8. 3: Polyhydramnios. Reviewed, dictated and finalized at location A.
== END 2024-03-28 08:19 | disposition home or self-care (01) ==
LOC: ANHOBOP 13:02
PROVIDERS: PCP Internal Medicine; Visit Provider Obstetrics & Gynecology
DX: O24.419 Gestational diabetes mellitus in pregnancy, unspecified control (principal); O36.8130 Decreased fetal movements, third trimester, not applicable or unspecified; O40.3XX0 Polyhydramnios, third trimester, not applicable or unspecified; Z3A.32 32 weeks gestation of pregnancy; Z3A.33 33 weeks gestation of pregnancy; Z3A.35 35 weeks gestation of pregnancy
CPT/HCPCS: 59025; 76819

== ENCOUNTER 2024-03-19 18:09 | Inpatient (IN) | payer OTHER, SELFPAY ==
[2024-03-19] VITALS (93 sets, daily range): BP systolic 114–154; BP diastolic 45–93; PULSE 63–105; TEMP 37; O2SAT 96–100; BMI 35.2
--- NOTE | 2024-03-19 18:36 | LDADM ---
This patient, Mariana Muniz, was admitted to Labor/Delivery/Recovery 106 on 03/19/24 at 18:09. Plans for labor, pain management and were discussed with patient. Patient/family oriented to hospital policies and general routines including ID bracelet, bed and alarms, visiting hours, pain management, procedures, bathroom and other care routines, personal items, smoking policy, room service/diet and guest tray routines, infant security routines, and visiting hours. Patient/Family are encouraged to report perceived risks to care and to ask questions if they do not understand what they are told or what they should do. See [facility] for further documentation.
[2024-03-19] MEDS: LACTATED RINGERS 1,000 ML 125 ML IV CONT ×2 (18:55→20:18)
--- NOTE | 2024-03-19 18:59 | WPDANESEPP ---
Anes - Eval Pre Procedure Procedure: Labor Epidural Date/Time: 03/19/24 18:59 Surgeon: George Preop Diagnosis: Labor Pain Pre Op Diagnosis: Contractions Patient Data Age: 38 Gender: F Height: 1.63 m Weight: 93 kg Last Vital Signs Pulse 82 03/19/24 18:29 BP 154/78 H 03/19/24 18:29 Pulse Ox 99 03/19/24 18:56 O2 Del Method Room Air 03/19/24 18:36 Allergies Allergy/AdvReac Type Severity Reaction Status Date / Time NKDA Allergy Unknown Unknown Uncoded 02/13/24 09:48 Home Medications Medication Instructions Recorded Confirmed Type vit no.133-ferrous 1 tablet PO DAILY 12/06/21 02/13/24 History fumarate 28 mg-folic acid 800 mcg tablet () aspirin 81 mg tablet 81 mg PO DAILY 02/13/24 02/13/24 History docusate sodium 50 mg capsule 100 mg PO DAILY 02/13/24 02/13/24 History sertraline 100 mg tablet 100 mg PO DAILY 02/13/24 02/13/24 History cholecalciferol (vitamin D3) 50 50 mcg PO DAILY 03/03/24 03/03/24 History mcg (2,000 unit) capsule (Vitamin D3) glyburide 5 mg tablet 7.5 mg PO HS 03/03/24 03/03/24 History albuterol sulfate 90 mcg/actuation 2 puff inhalation QID PRN Wheezing 03/10/24 03/10/24 History aerosol inhaler esomeprazole magnesium 40 mg 40 mg PO DAILY 03/10/24 03/10/24 History capsule,delayed release (Nexium) montelukast 10 mg tablet 10 mg PO HS 03/10/24 03/10/24 History (Singulair) Laboratory Tests 03/19/24 18:51 WBC Pending RBC Pending Hgb Pending Hct Pending MCV Pending MCH Pending MCHC Pending RDW Pending Plt Count Pending MPV Pending Immature Gran % (Auto) Pending Neut % (Auto) Pending Lymph % (Auto) Pending [place] % (Auto) Pending Eos % (Auto) Pending Baso % (Auto) Pending Lymph # (Auto) Pending [place] # (Auto) Pending Eos # (Auto) Pending Baso # (Auto) Pending Abs Immat Gran (auto) Pending Absolute Neuts (auto) Pending Absolute Nucleated RBC Pending Nucleated RBC % Pending Sodium Pending Potassium Pending Chloride Pending Carbon Dioxide Pending Anion Gap Pending BUN Pending Creatinine Pending Estim Creat Clear Calc Pending Estimated GFR Pending Glucose Pending Uric Acid Pending Calcium Pending Total Bilirubin Pending AST Pending ALT Pending Alkaline Phosphatase Pending Total Protein Pending Albumin Pending RPR Pending HIV 1&2 Ab/P24 Ag 4thGn Pending : gestational age (, [place] 04/08/24) Patient hx anesthesia problems: none Family hx anesthesia problems: none Results Review: All pre-operative results and documents have been reviewed as part of the pre-operative evaluation. [facility] Past Medical History Medical History Asthma Depression Family History Family History Grandparent IBS (irritable bowel syndrome) Acid reflux FH: mental illness Asthma Heart disease Diabetes mellitus Cancer Mother IBS (irritable bowel syndrome) Acid reflux Alcohol addiction FH: mental illness Cancer Father Alcohol addiction Pancreatitis Heart disease Diabetes mellitus Other Patient's father is Social History Social History Smoking status: Never smoker Second hand tobacco smoke exposure: No Substance use: never Do You Feel Safe in your Home?: Yes Lack of Transportation: No Lack of Food: Never True Current Housing: I Have Housing Concerned About Future Housing: No Difficulty Paying Gas/Electric Bills: No Difficulty Paying for Meds: No Currently Unemployed: No Education: Bachelor's Degree Difficulty w/ Childcare or Family Care: No Sarai
[2024-03-19 19:00] LABS: Basophils Absolute Auto 0.1 K/mm3 (0.0-0.1); Basophils Percent Auto 0.3 % (0.2-1.2); Eosinophils Absolute Auto 0.2 K/mm3 (0-0.3); Eosinophils Percent Auto 1.1 % (0-4.4); Hematocrit 40.9 % (37.0-47.0); Hemoglobin 13.8 g/dL (12.0-15.0); Immature Granulocyte Absolute 0.07 K/mm3 (0.00-0.031); Immature Granulocyte Percent A 0.4 % (0-0.5); Lymphocytes Absolute Auto 2.12 K/mm3 (0.9-3.2); Lymphocytes Percent Auto 13.3 % (18.3-44.2); Mean Corpuscular HGB Conc 33.7 g/dl (32-36); Mean Corpuscular Hemoglobin 30.9 pg (26-34); Mean Corpuscular Volume 91.5 fl (80-100); Monocytes Absolute Auto 0.9 K/mm3 (0.1-0.6); Monocytes Percent Auto 5.3 % (2.6-8.5); Neutrophils Absolute Auto 12.6 K/mm3 (1.3-6.7); Neutrophils Percent Auto 79.6 % (45.5-73.1); Platelet Count Result 150 k/mm3 (150-375); Red Blood Count 4.47 M/mm3 (4.2-5.4); Red Cell Distribution Width 13.4 % (11.5-14.5); White Blood Count 15.9 K/mm3 (4.5-10.0)
[2024-03-19 19:11] LABS: Alanine Aminotransferase 19 U/L (6-35); Albumin Level 4.1 g/dL (3.5-5.1); Alkaline Phosphatase 137 U/L (38-126); Anion Gap 7 mmol/L (4-12); Aspartate Amino Transferase 31 U/L (14-36); Bilirubin,Total 0.7 mg/dL (0.2-1.3); Blood Urea Nitrogen 15 mg/dL (7-17); Calcium 9.6 mg/dL (8.4-10.2); Carbon Dioxide 20 mmol/L (22-30); Chloride 108 mmol/L (98-107); Estimated CRCL calculation 94 ml/min; Estimated Glomerular Filt Rate > 60; Glucose 131 mg/dL (65-110); Potassium 4.3 mmol/L (3.4-5.0); Sodium 135 mmol/L (137-145); Uric Acid 4.9 mg/dL (2.5-7.5)
[2024-03-19 19:48] LABS: HIV 1/2 Ab P24 Ag Result Negative (Negative)
[2024-03-19 20:46] LABS: Glucose Point of Care 101 mg/dl (65-105)
--- NOTE | 2024-03-19 22:02 | P.HP_ITS ---
Obstetrics - Admit Note Admission Note: record reviewed. Additions to the history and/or subsequent changes in the physical findings follow. 38 y/o at 37 1/7 weeks here with contractions. GBS neg. Cervix 7 cm on admission. complicated by A2DM, with good glycemic control on glyburide 7.5 mg qhs. Anxiety well controlled on sertraline 50 mg daily. Asthma well-controlled. Her first baby was born at 37 weeks after labor was induced for HELLP. She has been taking ASA 81 mg daily. BP normal in office, w ith no proteinuria, and no headache / epigastric / RUQ pain. Now comfortable with epidural. AVSS NST reactive TOCO: contractions every 3-4 min ABD soft, nontender, gravid, vertex EXT nontender Cervix 8/100/-1. AROM with clear fluid. A: IUP at term with labor. A2DM, well-controlled. Clinically no evidence of preeclampsia. P: Continue to monitor glucose. Anticipate .
[2024-03-19] MEDS: OXYTOCIN 30 UNITS/NS 500 ML 30 UNITS/500 ML BAG 999 UNITS IV CONT (22:25)
--- NOTE | 2024-03-19 22:48 | PM.OBPRVD ---
OB - Vaginal Delivery Note Procedure Delivery date: 03/19/24 Induction method: None Delivery augmentation: Rupture of Membranes Delivery monitor: External FHT and External Uterine Route of delivery: Episiotomy description: None Laceration Description: Perineal - 1st Degree Delivery repair: vicryl (3-0) Specimen: Yes (cord blood, placenta, skin tags) Quantitative Blood Loss (ml): 240 Anesthesia type: Epidural Disposition: PACU Complications: None Narrative: Procedure: 1) ; 2) excisional biopsies of skin of vulva and right thigh Technique: 38 y/o at 37 1/7 weeks gestation who presented to the hospital with contractions. Labor was diagnosed. She received an epidural. Amniotomy was performed with return of clear fluid. Her labor progressed rapidly and her cervix dilated completely. She pushed with good effort and delivered the 's head to the perineum, followed by the body. The nose and mouth were bulb suctioned. After a delay, the cord was clamped and cut. The was handed off the field. Cord blood was collected. The placenta delivered spontaneously and was grossly normal in appearance. The usual 3 vessel cord was noted. A first degree midline perineal laceration was sustained. This was reapproximated using 3 0 Vicryl in the usual layered fashion. A 2 mm right vulvar skin tag and a 4 mm right thigh skin tag were sharply excised and sent to pathology. Interrupted sutures of 3-0 vicryl were used to reapproximate the wound edges. Excellent hemostasis resulted as did excellent reapproximation of the normal anatomy. Needle and instrument counts were correct. The patient was taken to recovery room in stable condition. The infant went to the nursery in stable condition. I was present and scrubbed for the entire delivery. [place] Baby Date of : 03/19/24 Time of : 22:18 Weeks of gestation at delivery: 37 gender: Male presentation: vertex position: Right Occiput Anterior Placenta delivery description: Spontaneous and Normal Configuration Cord Vessel Description: 3 Vessels and Delayed Cord Clamping score one minute: 8 score five minutes: 9
--- NOTE | 2024-03-19 22:54 | PM.OBDSVD ---
DS: Admitting Diagnosis Discharge Date 03/21/24 Admitting Diagnosis IUP at 37 1/7 weeks Labor A2DM DS: Discharge Diagnosis Discharge Diagnosis (1) (normal spontaneous vaginal delivery): Code(s): O80 - Encounter for full-term uncomplicated delivery Status: Acute (2) GDM, class A2: Code(s): O24.419 - Gestational diabetes mellitus in , unspecified control Status: Acute OB - DS: Summary OB Procedures : None OB Procedures Intrapartum: Spontaneous Vag Delivery OB Procedures: : None Peripartum Data Laceration Description: Perineal - 1st Degree Episiotomy description: None Time Spent with Patient Time attestation: Total time spent providing and/or coordinating discharge services: DS: Data Data Completed and Pending Labs on day of discharge: Labs from last 24 hours 03/19/24 03/19/24 20:40 18:51 WBC 15.9 H RBC 4.47 Hgb 13.8 D Hct 40.9 MCV 91.5 MCH 30.9 MCHC 33.7 RDW 13.4 Plt Count 150 D MPV 12.0 H Immature Gran % (Auto) 0.4 Neut % (Auto) 79.6 H Lymph % (Auto) 13.3 L [place] % (Auto) 5.3 Eos % (Auto) 1.1 Baso % (Auto) 0.3 Lymph # (Auto) 2.12 [place] # (Auto) 0.9 H Eos # (Auto) 0.2 Baso # (Auto) 0.1 Abs Immat Gran (auto) 0.07 H Absolute Neuts (auto) 12.6 H Absolute Nucleated RBC 0.000 Nucleated RBC % 0.0 Sodium 135 L Potassium 4.3 Chloride 108 H Carbon Dioxide 20 L Anion Gap 7 BUN 15 D Creatinine 0.80 Estim Creat Clear Calc 94 Estimated GFR > 60 Glucose 131 H POC Capillary Glucose 101 Uric Acid 4.9 Calcium 9.6 Total Bilirubin 0.7 AST 31 ALT 19 Alkaline Phosphatase 137 H Total Protein 8.0 Albumin 4.1 RPR Pending HIV 1&2 Ab/P24 Ag 4thGn Negative Blood Type AB Positive Antibody Screen Negative Discharge Plan Discharge Attending physician on discharge: Doroteo Vazquez Discharging Clinician: Doroteo Vazquez Patient Disposition: Home, Self-Care Activity: pelvic rest Diet: regular Discharge Instructions: Call or return if temperature above 100.4? F, increased abdominal pain, increased vaginal bleeding or any new problems. Stand Alone Forms: General Discharge Information Follow-up/Referrals: Doroteo Vazquez MD [Physician] - 6 Weeks Discharge Medications: New ibuprofen 600 mg tablet 600 mg PO Q6H PRN (Reason: cramps) Qty: 30 0RF Continued sertraline 100 mg Tablet 100 mg PO DAILY Colace 50 mg Capsule 100 mg PO DAILY cholecalciferol (vitamin D3) [Vitamin D3] 50 mcg (2,000 unit) Capsule 50 mcg PO DAILY 28-800 mg-mcg Tablet 1 tablet PO DAILY esomeprazole magnesium [Nexium] 40 mg Capsule,Delayed Release(Dr/Ec) 40 mg PO DAILY montelukast [Singulair] 10 mg Tablet 10 mg PO HS albuterol sulfate 90 mcg/actuation Hfa Aerosol Inhaler 2 puff INHALATION QID PRN (Reason: Wheezing) Discontinued Adult Aspirin 81 mg Tablet 81 mg PO DAILY glyburide 5 mg Tablet 7.5 mg PO HS Date of admission: 03/19/24 18:09 Primary Care Provider: Debo,Alexandre Admitting Provider: Doroteo Vazquez Attending physician on admission: Doroteo Vazquez Condition: Stable
[2024-03-19] MEDS: OXYTOCIN 30 UNITS/NS 500 ML 30 UNITS/500 ML BAG 125 UNITS IV CONT (23:00)
[2024-03-20] VITALS (26 sets, daily range): BP systolic 110–132; BP diastolic 48–70; PULSE 69–100; RESP 16–18; TEMP 36.4–37.9; O2SAT 97–100
[2024-03-20] MEDS: WITCH HAZEL 40 PADS 1 PAD TOPICAL (01:38)
[2024-03-20] MEDS: BENZOCAINE 20% AER SPR (*SP) 56 GM CAN 1 SPRAY TOPICAL (01:38)
[2024-03-20] MEDS: IBUPROFEN 600 MG TABLET PO ×3 (02:36→19:11)
[2024-03-20] MEDS: ACETAMINOPHEN 325 MG TABLET 650 MG PO ×2 (02:37→19:11)
--- NOTE | 2024-03-20 03:07 | OBPPTRN ---
0155 on 03/20/2024 Patient transferred in wheelchair to post room #292. Support person present. Oriented to unit, room, information board, rooming in, admission packet and security measures. Patient verbalizes understanding.
[2024-03-20 05:45] LABS: Hematocrit 35.9 % (37.0-47.0); Hemoglobin 12.1 g/dL (12.0-15.0); Mean Corpuscular HGB Conc 33.7 g/dl (32-36); Mean Corpuscular Hemoglobin 31.3 pg (26-34); Mean Corpuscular Volume 92.8 fl (80-100); Mean Platelet Volume 11.9 fl (7.4-10.4); Platelet Count Result 130 k/mm3 (150-375); Red Blood Count 3.87 M/mm3 (4.2-5.4); Red Cell Distribution Width 13.3 % (11.5-14.5); White Blood Count 15.8 K/mm3 (4.5-10.0)
[2024-03-20] MEDS: DOCUSATE SODIUM 100 MG CAPSULE PO (08:32)
--- NOTE | 2024-03-20 11:11 | PM.OBPNVD ---
OB - PN: Subj Subjective Date/time seen: 03/20/24 11:05 Interval history: Doing well. Urinating without difficulty. Denies passing any large clots. Denies dizziness with ambulating. No BOYKIN, visual changes, RUQ pain. Tolerating po food and fluids. Bonding with infant. Baby requiring supplementation d/t some low blood sugars. Patient comments: no complaints baby status: doing well feeding status: breast and bottle feeding (also breast pumping) OB - PN: Obj Data Labs 03/20/24 05:34 03/19/24 18:51 Labs: Laboratory Results - last 24 hr 03/19/24 03/19/24 03/20/24 18:51 20:40 05:34 WBC 15.9 H 15.8 H RBC 4.47 3.87 L Hgb 13.8 D 12.1 Hct 40.9 35.9 L MCV 91.5 92.8 MCH 30.9 31.3 MCHC 33.7 33.7 RDW 13.4 13.3 Plt Count 150 D 130 L MPV 12.0 H 11.9 H Immature Gran % (Auto) 0.4 Neut % (Auto) 79.6 H Lymph % (Auto) 13.3 L [place] % (Auto) 5.3 Eos % (Auto) 1.1 Baso % (Auto) 0.3 Lymph # (Auto) 2.12 [place] # (Auto) 0.9 H Eos # (Auto) 0.2 Baso # (Auto) 0.1 Abs Immat Gran (auto) 0.07 H Absolute Neuts (auto) 12.6 H Absolute Nucleated RBC 0.000 Nucleated RBC % 0.0 % Immature Plt Fraction 10.0 Sodium 135 L Potassium 4.3 Chloride 108 H Carbon Dioxide 20 L Anion Gap 7 BUN 15 D Creatinine 0.80 Estim Creat Clear Calc 94 Estimated GFR > 60 Glucose 131 H POC Capillary Glucose 101 Uric Acid 4.9 Calcium 9.6 Total Bilirubin 0.7 AST 31 ALT 19 Alkaline Phosphatase 137 H Total Protein 8.0 Albumin 4.1 HIV 1&2 Ab/P24 Ag 4thGn Negative Blood Type AB Positive Antibody Screen Negative OB - PN A/P Plan day: 1 Plan: routine care Time Spent With Patient Time: Total time spent is greater than 50% in coordination of care (as documented) at patient's floor/unit and/or counseling patient: Review of Systems Review of Systems: All systems reviewed & are unremarkable except as noted in HPI and below Exam Narrative: Alert and oriented. Mood is pleasant and cooperative. Perineum with minimal edema. Fundus firm and below umbilicus. Const: General: cooperative, healthy appearing, no acute distress and alert Orientation/consciousness: patient oriented x3 Limitations: no limitations Resp: Effort & Inspection: normal respiratory effort and able to speak in complete sentences Auscultation: clear to auscultation bilaterally Cardio: Rate: regular rate GI: Inspection: normal to inspection Auscultation: normal bowel sounds : General: Yes bladder normal to palpation External Female Exam: other (lochia WNL) Bimanual exam- vagina & uterus: bladder normal to palpation Other: Fundus firm and below U Skin: General skin exam: normal color and no rashes or lesions noted Neuro: General: patient oriented x3 and moves all extremities Cognition (Neuro): normal cognition Extrem: General: normal to inspection and no calf tenderness Right lower extremity: edema (trace) Left lower extremity: edema (trace) Psych: Appearance: grossly normal Mental Status: mental status grossly normal Affect: normal affect Thought process: Normal thought process present
--- NOTE | 2024-03-20 11:49 | WPDANLDPN2 ---
Anes-Prog Note L&D Date/Time: 03/20/24 11:49 Comfortable throughout: labor and delivery Neuraxial method: epidural Epidural/Spinal procedure site: clean & non-tender Neuro status: Neuro function grossly intact. Cardiovascular status: normal Respiratory status: normal Airway patency: baseline Mental status: baseline Post-Op hydration status: normal Vital Signs: Last Vital Signs Temp 36.8 C 03/20/24 08:39 Pulse 77 03/20/24 08:39 Resp 16 03/20/24 08:39 BP 128/70 03/20/24 08:39 Pulse Ox 99 03/20/24 08:39 O2 Del Method Room Air 03/20/24 08:39 Pain score (VAS): 0/10 I/O: Intake & Output 03/19/24 03/20/24 03/20/24 23:59 07:59 15:59 Intake Total 672.9 Output Total 240 235 Balance 432.9 -235 Post-procedural complaints: none Patient feedback: Patient satisfied with anesthetic care.
[2024-03-21 07:50] VITALS: BP 123/79; PULSE 70; RESP 16; TEMP 36.4; O2SAT 97
[2024-03-21] MEDS: DOCUSATE SODIUM 100 MG CAPSULE PO (09:04)
--- NOTE | 2024-03-21 11:38 | PC.NURSE ---
1025 - Consulted with parents to assess service needs. Mother share they are using a pump consistently without pain and Father of baby shared that they are supplementing their infant with formula until the infant can stabilize the blood sugar. services offered and parents decline at this time.
--- NOTE | 2024-03-21 12:51 | PM.OBPNVD ---
OB - PN: Subj Subjective Date/time seen: 03/21/24 12:51 Narrative: Pain OK. Desires circumcision for son. Would like to go home. OB - PN: Obj Data Labs 03/20/24 05:34 03/19/24 18:51 OB - PN A/P Plan day: 2 Comments: A: PPD#2, doing well. P: Reviewed circ. Home to f/u 6 weeks. Exam Psych: Other: AVSS ABD soft, nontender, fundus firm EXT nontender
[2024-03-21 13:15] LABS: Rapid Plasma Reagin Non-Reactive (NonReactive)
[2024-03-22 10:42] VITALS: BP 121/66; PULSE 78; RESP 18; TEMP 36.9; O2SAT 100
== END 2024-03-21 19:40 | disposition home or self-care (01) | DRG 768 ==
LOC: ANHLDR 22:56 → ANHOB2 03-20 01:57
PROVIDERS: Admitting Provider Obstetrics & Gynecology; PCP Internal Medicine; Visit Provider Obstetrics & Gynecology
DX: O24.429 Gestational diabetes mellitus in childbirth, unspecified control (principal); Z37.0 Single live birth; Z3A.37 37 weeks gestation of pregnancy; O70.0 First degree perineal laceration during delivery; O99.72 Diseases of the skin and subcutaneous tissue complicating childbirth; L91.8 Other hypertrophic disorders of the skin; O99.892 Other specified diseases and conditions complicating childbirth; N90.89 Other specified noninflammatory disorders of vulva and perineum
CPT/HCPCS: 36415; 80053; 82948; 84550; 85025; 85027; 85055; 86592; 86703; 86850; 86900; 86901; 88305; 88307; A9270; G0432; J2590; J2795; J7120